=== PATIENT | male | born 1980 | race Caucasian/White ===

== ENCOUNTER 2023-01-21 16:37 | Emergency (ER) | payer SELFPAY ==
[2023-01-21 16:44] VITALS: BP 144/103
[2023-01-21 17:00] VITALS: BP 134/91
[2023-01-21 17:15] VITALS: BP 136/94
[2023-01-21 17:30] VITALS: BP 140/95
[2023-01-21 17:46] VITALS: BP 139/102
[2023-01-21 18:12] LABS: BASO% 0.4 % (0-3); HEMATOCRIT 36.6 % (39.0-50.0); HEMOGLOBIN 11.3 g/dl (14.0-18.0); IMMATURE GRANULOCYTES 0.1 % (0.0-5.0); LYMPH% 18.4 % (15-41); MEAN CELL VOLUME 93.1 fL CALC (80.0-100.0); MEAN CORPUSCULAR HGB 28.8 pG CALC (26.0-32.0); MEAN CORPUSCULAR HGB CONC 30.9 g/dL CAL (32.0-36.0); MONO% 9.9 % (2-13); NEUT# 5.47 thou/uL (1.82-7.42); NEUT% 71.2 % (42-76); RED BLOOD COUNT 3.93 mill/uL (4.70-6.10); RED CELL DISTRI WIDTH 13.4 % (11.5-15.5)
[2023-01-21 18:23] LABS: ALBUMIN 3.3 g/dL (3.2-5.0); ALKALINE PHOSPHATASE 61 u/l (38-126); BILIRUBIN, TOTAL 0.2 mg/dL (0.2-1.3); BUN 13 mg/dL (9-20); BUN/CREATININE RATIO 25 (12-20 (CALC)); CARBON DIOXIDE 32 mmol/l (22-30); CHLORIDE 103 mmol/l (95-108); CREATININE 0.5 mg/dL (0.7-1.3); GFR FOR AFR.AMER. > 60 ML/MIN (>=60 (CALC)); GFR OTHER RACES > 60 ML/MIN (>=60 (CALC)); SGOT/AST 53 u/l (17-59); SODIUM 137 mmol/l (137-146); TOTAL PROTEIN 6.7 g/dL (6.3-8.2)
[2023-01-21 18:25] LABS: ANION GAP 7 (6-22 (CALC)); POTASSIUM 5.3 mmol/l (3.5-5.1)
[2023-01-22 01:09] VITALS: BP 139/102
== END 2023-01-21 20:45 | disposition short-term general hospital (02) | DRG 563 ==
LOC: ED 16:37
PROVIDERS: Family Medicine
PROC: 2W3QX1Z Immobilization of Right Lower Leg using Splint (ICD-10-PCS; principal; 2023-01-21)
DX: S82.301A Unspecified fracture of lower end of right tibia, initial encounter for closed fracture (principal); W11.XXXA Fall on and from ladder, initial encounter; Y92.009 Unspecified place in unspecified non-institutional (private) residence as the place of occurrence of the external cause; Z59.00 Homelessness unspecified

== ENCOUNTER → 2023-02-04 | Emergency (ER) | payer SELFPAY ==
[2023-02-04] VITALS (11 sets, daily range): BP systolic 135–157; BP diastolic 83–99
[~2023-02-04] VITALS: Ht 175.3 cm; Wt 150.0 kg
[~2023-02-04] MED LIST: BACTRIM DS1 TAB PO; HYDROCO/APAP1 TA9 PO; MOTRIN800 MG PO
== END | disposition home or self-care (01) | DRG 863 ==
LOC: ED 11:11
PROC: 2W3QX1Z Immobilization of Right Lower Leg using Splint (ICD-10-PCS; principal; 2023-02-04)
DX: T81.41XA Infection following a procedure, superficial incisional surgical site, initial encounter (principal); L03.115 Cellulitis of right lower limb; S82.201E Unspecified fracture of shaft of right tibia, subsequent encounter for open fracture type I or II with routine healing; S82.401E Unspecified fracture of shaft of right fibula, subsequent encounter for open fracture type I or II with routine healing; X58.XXXD Exposure to other specified factors, subsequent encounter; F17.200 Nicotine dependence, unspecified, uncomplicated; T36.96XA Underdosing of unspecified systemic antibiotic, initial encounter; Z91.120 Patient's intentional underdosing of medication regimen due to financial hardship; Y83.8 Other surgical procedures as the cause of abnormal reaction of the patient, or of later complication, without mention of misadventure at the time of the procedure; Z59.00 Homelessness unspecified